=== PATIENT | female | born 1980 | race Caucasian/White ===

== ENCOUNTER 2017-02-23 13:33 | Observation (INO) | payer BC ==
[~2017-02-23] VITALS: Ht 157.5 cm; Wt 65.9 kg
[~2017-02-23 13:33] MED LIST: AUGMENTIN875 MG PO; DILAUDID2 MG PO; FIORICET WI1 CAPSULE PO; FLAGYL500 MG PO; Feosol PO; HYDROCHLOROTH12.5 M3 PO; HYDROCHLOROTHIA25 MG PO; IONAMIN,FASTIN30 MG PO; Motrin PO; NORVASC5 MG PO; PREFERA-OB P1 TABLET PO; PRINIVIL20 MG PO; SIMVASTATIN20 M1 PO; SPRINTEC1 EACH PO; Tums,OsCal PO; VALTREX1000 MG PO; ZOCOR10 MG PO; ZOFRAN ODT4 MG PO
[2017-02-23] MEDS ORDERED: LISINOPRIL10 MG PO (14:00)
[2017-02-23 14:31] LABS: HEMATOCRIT 36.9 % (36.0-46.0); MCH 27.3 PG (29.0-34.0); MCHC 34.1 G/DL (30.0-36.0); MEAN PLAT.VOLUME 9.6 uM^3 (9.5-12.4); PLATELET COUNT 313 K/uL (156-360); RBC DIS.WIDTH-CV 12.4 % (11.8-14.6); RBC DIS.WIDTH-SD 35.8 % (39-53); RED BLOOD COUNT 4.61 M/uL (3.80-5.20); WHITE BLOOD COUNT 10.1 K/uL (4.1-10.2)
[2017-02-23 14:40] LABS: D-DIMER ELISA < 150.00 ng/mLDDU (<230)
[2017-02-23 14:42] LABS: CHLORIDE 107 mEq/L (99-109); POTASSIUM 3.7 mEq/L (3.7-5.4); SODIUM 138 mEq/L (136-147)
[2017-02-23 14:43] LABS: MAGNESIUM 1.9 mg/dL (1.3-2.7)
[2017-02-23 14:44] LABS: GLUCOSE 89 mg/dL (70-99)
[2017-02-23 14:45] LABS: ANION GAP 11 MEQ/L (2-14)
[2017-02-23 14:48] LABS: GFR ESTIMATE (CALCULATED) > 59 mL/min/
[2017-02-23 14:49] LABS: UREA NITROGEN (BUN) 12 mg/dL (9-23)
[2017-02-23 14:54] LABS: TROP-I INTERPRETATION NEGATIVE; TROPONIN-I < 0.01 ng/mL (0.0-0.30)
[2017-02-23] MEDS ORDERED: HYDROXYZINE HCL25 MG PO (15:05)
[2017-02-23] MEDS ORDERED: TYLENOL REGULA325 MG PO (15:06)
[2017-02-23 17:30] VITALS: BP 128/73
[2017-02-23 21:05] LABS: TROP-I INTERPRETATION NEGATIVE; TROPONIN-I < 0.01 ng/mL (0.0-0.30)
[2017-02-23 23:43] VITALS: BP 105/60
[2017-02-24 04:04] LABS: HEMATOCRIT 37.7 % (36.0-46.0); MCH 26.5 PG (29.0-34.0); MCHC 33.2 G/DL (30.0-36.0); MEAN PLAT.VOLUME 9.5 uM^3 (9.5-12.4); PLATELET COUNT 302 K/uL (156-360); RBC DIS.WIDTH-CV 12.4 % (11.8-14.6); RBC DIS.WIDTH-SD 35.8 % (39-53); RED BLOOD COUNT 4.71 M/uL (3.80-5.20)
[2017-02-24 04:20] LABS: CHLORIDE 108 mEq/L (99-109); POTASSIUM 4.1 mEq/L (3.7-5.4); SODIUM 141 mEq/L (136-147)
[2017-02-24 04:21] LABS: GLUCOSE 88 mg/dL (70-99)
[2017-02-24 04:23] LABS: ANION GAP 12 MEQ/L (2-14)
[2017-02-24 04:25] LABS: GFR ESTIMATE (CALCULATED) > 59 mL/min/
[2017-02-24 04:26] LABS: UREA NITROGEN (BUN) 12 mg/dL (9-23)
[2017-02-24 04:32] VITALS: BP 91/64
[2017-02-24 04:33] LABS: TROP-I INTERPRETATION NEGATIVE; TROPONIN-I < 0.01 ng/mL (0.0-0.30)
[2017-02-24 10:20] VITALS: BP 110/73
[2017-02-24 12:21] VITALS: BP 113/60
== END 2017-02-24 14:10 | disposition home or self-care (01) ==
LOC: EME 13:33 → EDOF 15:49 → 5WEST 15:49 → EDOF 15:49 → ENRESERV 15:58 → 5WEST 17:04
PROVIDERS: Physician Assistant; Physician Assistant Medical
DX: R07.9 Chest pain, unspecified (principal); I11.9 Hypertensive heart disease without heart failure; G43.909 Migraine, unspecified, not intractable, without status migrainosus; R94.31 Abnormal electrocardiogram [ECG] [EKG]; R20.0 Anesthesia of skin; F41.9 Anxiety disorder, unspecified; R06.02 Shortness of breath; F32.9 Major depressive disorder, single episode, unspecified; K21.9 Gastro-esophageal reflux disease without esophagitis; E78.5 Hyperlipidemia, unspecified; Z98.84 Bariatric surgery status; Z79.82 Long term (current) use of aspirin; Z87.891 Personal history of nicotine dependence; Z87.442 Personal history of urinary calculi; Z82.3 Family history of stroke; Z88.1 Allergy status to other antibiotic agents
CPT/HCPCS: 71020; 80048; 83735; 84484; 85027; 85379; 93005; 99281; 99284; G0378; J1650; Q0177

== ENCOUNTER → 2017-02-25 | Outpatient (CLI) | payer BC ==
[~2017-02-25] MED LIST changes: +HYDROXYZINE HCL25 MG PO; +LISINOPRIL10 MG PO; +TYLENOL REGULA325 MG PO
== END | disposition home or self-care (01) ==
LOC: NUC 06:30
DX: R07.9 Chest pain, unspecified (principal)
CPT/HCPCS: 78452; 93017; A9500

== ENCOUNTER 2017-03-28 05:25 | Day surgery (SDC) | payer BC ==
[~2017-03-28] VITALS: Ht 157.5 cm; Wt 65.8 kg
[2017-03-28 05:53] VITALS: BP 98/65
[2017-03-28] MEDS ORDERED: NORCO 5/3251 TABLET PO (08:20)
[2017-03-28 10:15] VITALS: BP 91/56
[2017-03-28 11:25] VITALS: BP 96/50
== END 2017-03-28 11:20 | disposition home or self-care (01) ==
LOC: SDC 05:25
PROC: 0FT44ZZ Resection of Gallbladder, Percutaneous Endoscopic Approach (ICD-10-PCS; principal; 2017-03-28)
DX: K80.10 Calculus of gallbladder with chronic cholecystitis without obstruction (principal); I10 Essential (primary) hypertension; Z98.84 Bariatric surgery status; Z87.891 Personal history of nicotine dependence
CPT/HCPCS: 88304; C1769; J1100; J1170; J1885; J2250; J2310; J2405; J2710; J3010